=== PATIENT | female | born 1980 | race Caucasian/White ===

== ENCOUNTER 2017-01-19 20:32 | Emergency (ER) | payer SELFPAY ==
[~2017-01-19] VITALS: Ht 172.7 cm; Wt 78.0 kg
--- NOTE | 2017-01-19 20:35 | Emergency Room Report ---
History of Present Illness General Source: Patient, EMS Present Illness HPI 36YOF BIBEMS for acute ETOH intox Was drinking at restaurant Friend couldnt take her home, take care of her Keeps repeating "I'm fine" Denies drug use Denies trauma Feels well otherwise Patient History Limited by: medical condition Past Medical History: none Past Surgical History: none Pertinent Family History: none Social History: Denies: smoking, alcohol use, drug use Now: No Immunizations: UTD Reviewed Nursing Documentation: PMH: Agreed, PSxH: Agreed Review of Systems All Other Systems: negative except mentioned in HPI Physical Exam Sp02 EP Interpretation: reviewed, normal General Appearance: normal inspection, well appearing, no apparent distress, alert, GCS 15, non-toxic, other - +AOB Head: normocephalic, atraumatic Eyes: bilateral eye PERRL, bilateral eye EOMI ENT: normal ENT inspection, hearing grossly normal, normal voice Neck: normal inspection, full range of motion, supple, no bony tend Respiratory: normal inspection, lungs clear, normal breath sounds, no respiratory distress, no retraction, no wheezing Cardiovascular #1: regular rate, rhythm, no edema Gastrointestinal: normal inspection, normal bowel sounds, non tender, soft, no guarding, no hernia Genitourinary: no CVA tenderness Musculoskeletal: normal inspection, back normal, normal range of motion, Evan' s Sign negative Neurologic: normal inspection, alert, oriented x3, responsive, 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 Jan 19, 2017 20:35
[2017-01-19 20:40] VITALS: BP 142/96
[2017-01-19 21:40] VITALS: BP 136/90
[2017-01-19] MEDS ORDERED: Hydrogen Peroxide 473ml Bottle TOPIC ONE (21:45)
[2017-01-19 23:00] VITALS: BP 136/91
[2017-01-20 00:35] VITALS: BP 136/86
[2017-01-20 01:00] VITALS: BP 136/86
== END 2017-01-20 01:00 | disposition home or self-care (01) ==
LOC: EDBD 20:32 → EMR 21:10
DX: F10.129 Alcohol abuse with intoxication, unspecified (principal)
CPT/HCPCS: 99283